=== PATIENT | female | born 1980 | race Caucasian/White ===

== ENCOUNTER → 2019-05-30 | Outpatient (CLI) | payer OTHER | END | disposition home or self-care (01) | LOC: CFH 12:47 | PROVIDERS: ATTEND Obstetrics & Gynecology | DX: Z12.31 Encounter for screening mammogram for malignant neoplasm of breast (principal); N64.89 Other specified disorders of breast | CPT/HCPCS: 77067 ==

== ENCOUNTER 2020-06-06 09:22 | Outpatient (CLI) | payer OTHER | END 2020-06-06 23:59 | disposition home or self-care (01) | LOC: CFH 09:22 | PROVIDERS: ATTEND Obstetrics & Gynecology | DX: Z02.9 Encounter for administrative examinations, unspecified (principal) ==

== ENCOUNTER → 2020-06-16 | Outpatient (CLI) | payer OTHER | END | disposition home or self-care (01) | LOC: CFH 13:06 | PROVIDERS: ATTEND Obstetrics & Gynecology | DX: N60.01 Solitary cyst of right breast (principal); N63.20 Unspecified lump in the left breast, unspecified quadrant | CPT/HCPCS: 76642; 77062; 77066; G0279 ==

== ENCOUNTER 2020-07-03 12:23 | Outpatient (CLI) | payer OTHER ==
[2020-07-03] MEDS ORDERED: SODIUM BICARBONATE 4.2%, 5ML ONE (12:45)
[2020-07-03] MEDS ORDERED: LIDOCAINE 1%, 20ML ONE (12:45)
[2020-07-03] MEDS ORDERED: LIDOCAINE 1%-EPI 1:100K, 20ML ONE (12:45)
== END 2020-07-03 23:59 | disposition home or self-care (01) ==
LOC: CFH 12:23
PROVIDERS: ATTEND Obstetrics & Gynecology
DX: N63.25 Unspecified lump in the left breast, overlapping quadrants (principal); D24.2 Benign neoplasm of left breast
CPT/HCPCS: 19083; 77065; 88305; J3490